=== PATIENT | male | born 1990 | race African-American/Black ===

== ENCOUNTER 2021-06-17 06:51 | Emergency (ER) | payer SELFPAY ==
[~2021-06-17] VITALS: Ht 160 cm; Wt 60.9 kg
--- NOTE | 2021-06-17 07:44 | PHYS DOC ---
General Adult EDM: Chief Complaint: DENTAL PROBLEM HPI: HPI: Patient is a 31 year old male who presents with lower dental pain reportedly that just began last night. He has a broken teeth, he has a couple of broken teeth with cavities on his lower molars. He has not sought dental care. He has not taken anything for the pain. He denies any acute trauma or injury. Denies facial swelling. Denies fevers or chills. Denies sore throat. Denies cough, dyspnea, chest pain, nausea vomiting. He repeatedly demands to be given something for pain. Review of Systems: Review of Systems: Constitutional: Denies fever or chills. [] HENT: Denies nasal congestion or sore throat. Reports left lower dental pain. Denies facial or oral swelling or oral or facial rash. Respiratory: Denies cough or shortness of breath. [] Cardiovascular: Denies chest pain or edema. [] GI: Denies abdominal pain, nausea or vomiting. Integument: Denies rash. [] Neurologic: Denies headache,, dizziness or weakness. Lymphatic: Denies swollen glands. [] Psychiatric: Anxiety. [] Heart Score: C/O Chest Pain: No Risk Factors: Risk Factors: DM, Current or recent (<one month) smoker, HTN, HLP, family history of CAD, obesity. Risk Scores: Score 0 - 3: 2.5% MACE over next 6 weeks - Discharge Home Score 4 - 6: 20.3% MACE over next 6 weeks - Admit for Clinical Observation Score 7 - 10: 72.7% MACE over next 6 weeks - Early Invasive Strategies Physical Exam: PE: Constitutional: Well developed, well nourished, no acute distress, non-toxic appearance. [] HENT: Normocephalic, atraumatic, oropharynx is patent and clear, uvula midline, mucous membranes are moist. Multiple broken teeth and multiple caries. Left lower first molar with tenderness to palpation of the tooth and. Gingival area, no evidence of swelling, no fluctuance, no drainage, no facial, sublingual, submandibular swelling or tenderness. No drooling or trismus. External ears are normal bilaterally. Eyes: Sclera clear, anicteric Neck: Trachea is midline. Cardiovascular: Well-perfused appearing. No peripheral edema. Lungs & Thorax: Respirations are nonlabored, speaks in full and clear sentences, equal chest rise Extremities: No limb deformity. Neurologic: Awake, alert, oriented x3, no facial asymmetry, speech is clear and fluent, ambulatory with a steady gait. Psychologic: Anxious. [] EKG: EKG: [] Radiology/Procedures: Radiology/Procedures: [] Course & Med Decision Making: Course & Med Decision Making The patient was given a dental block, which she tolerated well. He was given p.o. [place] and a first dose of penicillin as well. I discussed home care instructions. He is provided with outpatient dental resources. No current indication for imaging or invasive exams at this time. I told him to eat a soft diet. Return precautions are given. He verbalizes understanding. Yobani Disclaimer: Yobani Disclaimer: This electronic medical record was generated, in whole or in part, using a voice recognition dictation system. Departure Departure Impression: Primary Impression: Pain due to dental caries Disposition: HOME / SELF CARE / HOMELESS Condition: STABLE Referrals: NO PCP (PCP) Patient Instructions: Dental Caries Additional Instructions: Take the prescribed antibiotics for the full course, use the pain medicine as needed. Please contact a dentist for definitive treatment of your condition. I recommend calling the [facility] dental school [phone]. Return to the ER for severe facial swelling, difficulty breathing, inability to control secretions or inability to swallow or for any other concerns. Scripts Chlorhexidine Gluconate (PERIDEX) 15 Ml Mouthwash 15 ML PO BID for 7 Days, #480 ML 0 Refills Prov: ROS BERGERN Ignacia DO 06/17/21 Penicillin V Potassium (PENICILLIN V POTASSIUM) 500 Mg Tablet 1 TAB PO QID for 7 Days, #28 TAB Prov: CELINEROSN Ignacia DO 06/17/21 Hydrocodone Bit/Acetaminophen (HYDROCODONE-APAP 5-325 ) 1 Tab Tablet 1 TAB PO PRN Q6HRS PRN for PAIN for 7 Days, #15 TAB 0 Refills Prov: CELINEDOM Ignacia DO 06/17/21 CELINEDOM Beth DO Jun 17, 2021 07:44
[2021-06-17 07:51] VITALS: BP 167/99
[2021-06-17] MEDS ORDERED: HYDROcodone/APAP 5/325MG 1 TAB TABLET PO ONE (08:00)
[2021-06-17] MEDS ORDERED: LIDOCAINE 1% Multi-Dose 20 ML VIAL. INJ ONE (08:00)
[2021-06-17] MEDS ORDERED: PENICILLIN V K 250 MG TABLET. PO ONE (08:00)
[2021-06-17] MEDS ORDERED: CHLO15MO2 PO (08:18)
[2021-06-17] MEDS ORDERED: PENI500T PO (08:18)
[2021-06-17] MEDS ORDERED: HYDR-2761 PO (08:18)
== END 2021-06-17 08:42 | disposition home or self-care (01) ==
LOC: ER 06:51
DX: K08.89 Other specified disorders of teeth and supporting structures (principal); K02.9 Dental caries, unspecified
CPT/HCPCS: 64400; 99284; J3490

== ENCOUNTER 2021-06-29 02:14 | Emergency (ER) | payer SELFPAY ==
[~2021-06-29] VITALS: Ht 160 cm; Wt 63.3 kg
[~2021-06-29 02:14] MED LIST: CHLO15MO2 PO; HYDR-2761 PO; PENI500T PO
[2021-06-29 03:18] VITALS: BP 167/99
--- NOTE | 2021-06-29 03:30 | PHYS DOC ---
Past Medical History Past Surgical History: No Surgical History General Adult EDM: Chief Complaint: DENTAL PROBLEM HPI: HPI: Patient is a 31 year old male here with left lower dental pain. I saw him here several weeks ago for the same issue. He was given outpatient dental resources, and he reports that he lost these resources and has not yet followed up. He reports persistent but unchanged pain. The pain was severe enough this morning that he could not sleep. He took his last dose of hydrocodone that I had prescribed, yesterday. He reports that he has been taking ibuprofen occasionally, but he is now out of this as well. He does not wish to take [id number] ibuprofen but rather he would prefer a prescription for this. He denies facial swelling, sore throat, difficulty breathing, difficulty controlling secretions. He denies any acute/new trauma or injury to the tooth. He has dental caries and he has a "bad tooth" that has been broken for quite some time. Review of Systems: Review of Systems: Constitutional: Denies fever or chills. [] Eyes: Denies change in visual acuity. [] HENT: Denies nasal congestion or sore throat. Left lower dental pain. Respiratory: Denies cough or shortness of breath. [] Cardiovascular: Denies chest pain Neurologic: Denies headache, focal weakness or sensory changes. [] Psychiatric: Denies depression or anxiety. [] Heart Score: C/O Chest Pain: No Risk Factors: Risk Factors: DM, Current or recent (<one month) smoker, HTN, HLP, family history of CAD, obesity. Risk Scores: Score 0 - 3: 2.5% MACE over next 6 weeks - Discharge Home Score 4 - 6: 20.3% MACE over next 6 weeks - Admit for Clinical Observation Score 7 - 10: 72.7% MACE over next 6 weeks - Early Invasive Strategies Allergies: Allergies: Allergies Coded Allergies Type Severity Reaction Last Updated Verified No Known Drug Allergies 06/17/21 No Physical Exam: PE: Constitutional: Well developed, well nourished, no acute distress, non-toxic appearance. [] HENT: Normocephalic, atraumatic, oropharynx is patent and clear. Mucous membranes are moist. He does have mild to moderate gingivitis. He has an left lower first molar which is broken, demonstrating severe caries. Soft tissue tenderness. No purulent drainage, no focal areas of fluctuance or significant soft tissue swelling. No facial edema. No drooling or trismus. Neck: Trachea midline, full range of motion Cardiovascular: Well-perfused appearing Lungs & Thorax: Respirations are nonlabored Back: No tenderness, no CVA tenderness. [] Extremities: No limb deformity, no evidence of peripheral edema Neurologic: Awake, alert, oriented x3, no facial asymmetry, gait is steady, speech is clear and fluent Psychologic: Flat affect, he is cooperative. [] EKG: EKG: [] Radiology/Procedures: Radiology/Procedures: [] Course & Med Decision Making: Course & Med Decision Making He is given p.o. ibuprofen and p.o. [place]. He agreed to dental block, which she tolerated well. I used 1% lidocaine without epinephrine for periapical and dental block. He reported improvement of pain after this. He is once again given outpatient dental resources. I told him I would prescribe a small amount of pain medication, but this would be the last time he will receive an opioid prescription from the ED for this recurrent issue. I told him he absolutely must contact dental resources for definitive care and treatment. I strongly encouraged him to contact the [facility] dental school, recommending that he contact them later today to arrange for follow-up. He requested a prescription for ibuprofen. I did explain this is an [id number] medicine, but he insisted on a prescription, so this was provided as well. Return precautions are given. There is no current indication for further invasive exams, imaging, labs, based on current presentation. He is comfortable with the plan of care. Yobani Disclaimer: Yobani Disclaimer: This electronic medical record was generated, in whole or in part, using a voice recognition dictation system. Departure Departure Impression: Primary Impression: Pain due to dental caries Disposition: HOME / SELF CARE / HOMELESS Condition: STABLE Referrals: NO PCP (PCP) Patient Instructions: Dental Caries Additional Instructions: Please make sure you follow-up with a dental resources provided. Take the antibiotics as directed. Use the mouthwash as directed. Use the pain medicine as needed/as directed. Return to the ER for severe facial swelling, fever 100.4 or higher, difficulty breathing, inability to swallow or control secretions or for any other concerns. Scripts Ibuprofen (IBUPROFEN) 800 Mg Tablet 800 MG PO PRN TID PRN for PAIN, #20 TAB take with food or milk to avoid upsetting stomach Prov: DOM BERGER DO 06/29/21 Penicillin V Potassium (PENICILLIN V POTASSIUM) 500 Mg Tablet 1 TAB PO QID for 7 Days, #28 TAB Prov: DOM BERGER DO 06/29/21 Chlorhexidine Gluconate (PERIDEX) 15 Ml Mouthwash 15 ML PO BID for 7 Days, #480 ML 0 Refills Prov: CELINEDOM Ignacia DO 06/29/21 Hydrocodone Bit/Acetaminophen (HYDROCODONE-APAP 5-325 ) 1 Tab Tablet 1 TAB PO PRN Q6HRS PRN for PAIN, #12 TAB 0 Refills Prov: CELINEROS SIMONN Ignacia DO 06/29/21 DOM BERGER DO Jun 29, 2021 03:30
[2021-06-29] MEDS ORDERED: IBUPROFEN 400 MG TABLET. PO ONE (04:00)
[2021-06-29] MEDS ORDERED: LIDOCAINE 1% Multi-Dose 20 ML VIAL. INJ ONE (04:00)
[2021-06-29] MEDS ORDERED: PENI500T PO (04:15)
[2021-06-29] MEDS ORDERED: CHLO15MO2 PO (04:15)
[2021-06-29] MEDS ORDERED: HYDR-2761 PO (04:15)
[2021-06-29] MEDS ORDERED: IBUP-1060 PO (04:26)
[2021-06-29] MEDS ORDERED: HYDROcodone/APAP 5/325MG 1 TAB TABLET PO ONE (04:30)
== END 2021-06-29 04:30 | disposition home or self-care (01) ==
LOC: ER 02:14
DX: K02.9 Dental caries, unspecified (principal); K08.89 Other specified disorders of teeth and supporting structures
CPT/HCPCS: 64400; 99284; J3490